=== PATIENT | female | born 1955 | race Caucasian/White ===

== ENCOUNTER 2020-12-15 09:38 | Outpatient (CLI) | payer OTHER, SELFPAY ==
--- NOTE | 2020-12-15 09:42 | MM_ITS ---
WS: [id number] Bilateral screening digital mammogram, 12/15/2020 Clinical Data: SCREENING Comparison: 05/03/2018, 08/20/2014, 09/18/2008. Findings: The breast parenchymal pattern shows fibroglandular tissue. No spiculated masses or clustered calcifi cations are seen. There are no secondary signs of carcinoma. Mole markers are on both breasts. MM/[place] [id number] Impression: 1. Negative bilateral mammogram unchanged. 2. Recommend annual screening mammograms. BIRADS: 1-Negative FOLLOW UP: 1 Year Follow-up The CAD tool or die drawing checker was used.
== END 2020-12-15 09:39 | disposition home or self-care (01) ==
LOC: RADSHAW 09:41
PROVIDERS: PCP Family Medicine; Visit Provider Family Medicine
DX: Z12.31 Encounter for screening mammogram for malignant neoplasm of breast (principal)
CPT/HCPCS: 77067

== ENCOUNTER 2021-05-10 09:41 | Outpatient (CLI) | payer MEDICARE, SELFPAY ==
--- NOTE | 2021-05-10 09:54 | XR_ITS ---
WS: [id number] SCREENING DEXA SCAN [employer] CLINICAL INFORMATION: POSTMENOPAUSAL COMPARISON: None. FINDINGS: The L1-L4 bone mineral density measures 1.254 g/cm2. This corresponds to a T score score of 0.6 and Z score of 1.8. Left femoral neck bone mineral density measures 0.971 g/cm2. This corresponds to a T score of -0.3 an d Z score of 0.6. Right femoral neck bone mineral density measures 0.911 g/cm2. This corresponds to a T score -0.8of an d Z score of 0.1. Mean femoral neck bone mineral density measures 0.941 g/cm2. This corresponds to a T score of -0.5 an d Z score of 0.4. XR/XR DEXA axial skeleton* [id number] IMPRESSION: Normal bone mineralization. Patient's FRAX calculated 10 year probability for major osteoporotic fracture i s 8.0 % and osteoporotic hip fracture is 0.7%.
== END 2021-05-10 09:42 | disposition home or self-care (01) ==
PROVIDERS: PCP Family Medicine; Visit Provider Family Medicine
DX: Z78.0 Asymptomatic menopausal state (principal)
CPT/HCPCS: 77080

== ENCOUNTER 2023-05-01 10:48 | Outpatient (CLI) | payer MEDICARE, SELFPAY ==
--- NOTE | 2023-05-01 10:54 | MM_ITS ---
WS: [id number] BILATERAL 3D TOMOSYNTHESIS DIGITAL SCREENING MAMMOGRAPHY WITH CAD CLINICAL INFORMATION: SCREENING HISTORY: Screening mammogram. No current complaints. COMPARISON: 2020 TECHNIQUE: Bilateral CC and MLO views. FINDINGS: Scattered fibroglandular densities bilaterally. No suspicious focal mass, asymmetry, calcifications, or architectural distortion. No evidence of malignancy. Vascular calcification. IMPRESSION: MM/[place] [id number] BI-RADS: 2-Benign FOLLOW UP: 1 Year Follow-up Recommend return to annual screening mammography.
== END 2023-05-01 10:49 | disposition home or self-care (01) ==
PROVIDERS: PCP Family Medicine; Visit Provider Family Medicine
DX: Z12.31 Encounter for screening mammogram for malignant neoplasm of breast (principal)
CPT/HCPCS: 77063; 77067

== ENCOUNTER 2024-01-02 16:51 | Emergency (ER) | payer MEDICARE, SELFPAY ==
[2024-01-02 16:57] VITALS: BP 157/76; PULSE 75; RESP 18; TEMP 36.6; O2SAT 100; BMI 31.2
--- NOTE | 2024-01-02 17:01 | XRR_ITS ---
PROCEDURE INFORMATION: Exam: XR Left Ankle Exam date and time: 01/02/2024 5:09 PM Age: 68 years old Clinical indication: Injury or trauma; Other: Not specified; Blunt trauma; Ankle; Left TECHNIQUE: Imaging protocol: Radiologic exam of the left ankle. Views: 3 or more views. COMPARISON: No relevant prior studies available. FINDINGS: Bones/joints: Acute displaced fractures of the lateral and medial malleoli. Suspected posterior malleolar fracture as well, evaluation of which with CT may be helpful if clinically warranted. Talus, subtalar articulations and calcaneus are grossly intact. Soft tissues: Prominent soft tissue edema. XR/XR ankle LT min 3V* [id number] IMPRESSION: 1. Acute displaced fractures of the lateral and medial malleoli. 2. Suspected posterior malleolar fracture as well, evaluation of which with CT may be helpful if clinically warranted.
--- NOTE | 2024-01-02 17:09 | ED_ITS ---
HPI - Extremity Problem General: Chief complaint: Extremity Injury, Lower Stated complaint: left ankle pain Time Seen by Provider: 01/02/24 17:09 History of Present Illness: 68-year-old female comes in today with l eft ankle pain. On exam patient appears nontoxic. Patient appears in mild pain. Patient states that this afternoon she was stepping off the porch step when she twisted her ankle. states that the ankle seemed out of place when he first saw her and when he picked up her ankle it seemed to slide back into place . Alignment of the ankle at this time is normal. Patient does have swelling distally and laterally. Pulses are intact. Sensation is normal. Review of Systems General: Reports: 10 or more systems reviewed and unremarkable except in HPI and below Musc: Reports: extremity pain and extremity swelling Physical Exam Const: COMMON NORMALS: alert HENMT: COMMON NORMALS: normocephalic HEAD & SCALP: normocephalic Neck/C-Spine: COMMON NORMALS: full ROM Resp: COMMON NORMALS: normal respiratory effort Cardio: COMMON NORMALS: regular rate RATE: regular rate Back/Pelvis: COMMON NORMALS: thoracic and lumbar spine normal to inspection Neuro: SENSORIUM/ORIENTATION: Yes alert Skin: COMMON NORMALS: turgor normal GENERAL SKIN EXAM: turgor normal Course Vital Signs: Vital signs: Vital Signs Temperature 97.9 F 01/02/24 16:57 Pulse Rate 75 01/02/24 16:57 Respiratory Rate 18 01/02/24 16:57 Blood Pressure 157/76 01/02/24 16:57 Pulse Oximetry 100 01/02/24 16:57 Oxygen Delivery Me thod Room Air 01/02/24 16:57 MDM - Extremity (Nontraumatic) Medical Decision Making 68-year-old female comes in today for complaints of injury to the left ankle. On exam patient has swelling to lateral and medial aspects of the ankle. Pulses are intact. Cap refill is intact. Differential diagnosis includes not limited to fracture, sprain, contusion. X-ray noted a bimalleolar fracture of the left ankle. Patient was put in a posterior short leg with stirrup splint. Discussed patient with Dr. Rivas, foot and ankle surgeon, he agreed to see patient in his office tomorrow for follow-up treatment and evaluation. Patient and family both reported understanding of care plan need for follow-up or return to the ER. All radiology interpretation(s) finalized by discharge Discharge Plan Discharge Patient Disposition: Home Clinical Impression: Bimalleolar fracture of left ankle Qualifiers: Encounter type: initial encounter Fracture type: closed Qualified Code(s): S82.842A - Displaced bimalleolar fracture of left lower leg, initial encounter for closed fracture Condition: Stable Discharge Orders: Discharge ED (Routine); Ordered 01/02/24 Ordered By: Yao Delgado Referrals: Alondra Vasquez MD [Primary Care Provider] - Leonardo Rivas DPM [Physician] - Discharge Diet: Usual diet Discharge Activity: Increase activity as tolerated Patient Instructions: Ankle Fracture (ED) Activity Restrictions/Additional Instructions: You will need to follow-up with Dr. Rivas's office tomorrow. Expect to hear from the office in the morning with your appointment time. Elevate foot is much as possible to prevent swelling. Coding Level of Care Code ED [employer] for Bianca Erickson
--- NOTE | 2024-01-03 07:12 | DCPLANNER ---
message sent to podiatry for er f/u
== END 2024-01-02 18:10 | disposition home or self-care (01) ==
PROVIDERS: Emergency Provider Nurse Practitioner Family; PCP Family Medicine
DX: S82.842A Displaced bimalleolar fracture of left lower leg, initial encounter for closed fracture (principal); X50.1XXA Overexertion from prolonged static or awkward postures, initial encounter
CPT/HCPCS: 29515; 73610; 99283; E0114

== ENCOUNTER → 2024-01-03 08:59 | Outpatient (BNVA) | payer MEDICARE, SELFPAY | PROVIDERS: PCP Family Medicine; Visit Provider Podiatrist Foot & Ankle Surgery | DX: S82.842A Displaced bimalleolar fracture of left lower leg, initial encounter for closed fracture (principal); E11.42 Type 2 diabetes mellitus with diabetic polyneuropathy; X50.1XXA Overexertion from prolonged static or awkward postures, initial encounter | CPT/HCPCS: 99204 ==

== ENCOUNTER 2024-01-11 09:22 | Day surgery (SDC) | payer MEDICARE, SELFPAY ==
[2024-01-11] VITALS (10 sets, daily range): BP systolic 132–151; BP diastolic 65–87; PULSE 73–89; RESP 10–21; TEMP 36.6–36.9; O2SAT 93–99; BMI 31.2
--- NOTE | 2024-01-11 09:44 | PM.OP ---
Operative Report Date of procedure: January 11, 2024 Pre-op diagnosis: Bimalleolar fracture of left ankle S82.842A Post-op diagnosis: Bimalleolar fracture of left ankle S82.842A Procedure done: Open reduction internal fixation right bimalleolar fracture. CPT code 01533 Implants: [employer] anatomic fibular plate with 3.5 mm locking screws. [place] 4 mm headed screws medially 2-0 Vicryl, 3-0 Vicryl, skin teresita. Specimens removed/disposition: None Pathology: none Surgeon: Leonardo Rivas DPM Estimated blood loss: 5 See intraoperative documentation IV fluids: see intraoperative documentation Urine output: 0 Complications: None Brief History: left bimalleolar fracture to left ankle. DOI 01/02/24. She reports she was stepping off the porch step when she twisted her left ankle. Patient went to ED where x-rays were obtained. She is NWB with posterior splint to left and utilizing a wheel-chair at today visit. Patient is diabetic. She states that her last a1c 7.6%. I reviewed at length with the patient, the risks, potential complications, benefits, alternatives, expectations, and typical outcomes associated with the surgery. The risks and potential complications were explained in detail, including but not limited to infection, wound dehiscence or soft tissue complications, bleeding and hematoma, chronic edema, neuritis or nerve damage producing numbness or chronic pain, CRPS, failure to relieve pain or worsening pain, thick / painful / unsightly scar, limited motion / stiffness, malposition, delayed union, malunion, or nonunion, fracture, reaction to implants, anesthetic complications, venous thromboembolism, and deformity recurrence. I discussed the notion of no regrets with the patient as it pertains to complications and outcomes. The patient seemed to understand the nature of the proposed care and required convalescence. They asked appropriate questions, answered to their satisfaction. They are aware no guarantees can be made as to a satisfactory outcome and they understand there may be other possible unforeseen complications or outcomes not listed here that will be treated accordingly if they arise. There were no written or implied guarantees given to the patient. They gave informed consent to proceed. Procedure: Under mild sedation patient was brought to the operating room and positioned on the operating table in supine position. Timeout was performed. Anesthesia was then administered by the anesthesia service. Local anesthesia was injected by tinaelf consisting of 10 cc of 0.5 sent Marcaine plain for medial ankle nerve block, of note popliteal block to the left lower extremity was performed preoperatively per anesthesia. Pneumatic tourniquet was applied to the left high calf. The left lower extremity was scrubbed, prepped and draped utilizing normal aseptic technique. Left foot and ankle were exanguinated with an Esmarch bandage and tourniquet inflated to 250 mmHg. Attention was directed to the left lateral ankle where bony landmark of lateral malleolus was palpated, directly over the lateral malleolus and distal fibula a linear longitudinal incision was made through skin with a #15 blade with dissection carried down through subcutaneous tissue to the layer of periosteum using sharp and blunt technique. Care was taken to retract and preserve neurovascular and tendinous structures. All bleeders were ligated and cauterized as necessary. Periosteal incision was made and a Davie Garcia C fibular fracture was identified, this was distracted, curettaged of hematoma followed by saline flush and reduced and temporarily stabilized with [id number] fracture reduction forceps. Following standard AO technique a anatomic fibular plate provided by [employer] with 3.5 mm locking screws were utilized to fixate the fracture and stabilize the distal fibula not violating the ankle mortise this was confirmed with AP, oblique and lateral views with excellent fixation and and hardware placement and fracture reduction with anatomic alignment of the fibula in all 3 planes. Percutaneous fixation of the medial mall with 4.0 millimeter screw x 2 in parallel fashion not violating the ankle mortise once again in the AP, oblique and lateral view confirmed that the medial gutter was not violated with hardware in the medial malleolus was reduced. Cotton hook test did not reveal any medial gutter widening or diastases of the tib-fib clear space. The incisions were irrigated with saline solution. Medial incision closed with teresita, lateral incision closed in a layered fashion with periosteum reapproximated with 2-0 Vicryl, subcutaneous tissue with 3-0 Vicryl and skin with skin teresita. Incisions were dressed with Adaptic, sterile 4 x 4's, Kerlix followed by application of a well-padded short leg cast with ankle joint in neutral position. Tourniquet was deflated and a prompt hyperemic response is noted to the distal digits of the left foot. Patient tolerated the procedure and anesthesia well and was transferred to the PACU with vital signs stable and vascular status intact. Following a period of postoperative monitoring patient will be transferred back to the floor. She is to be nonweightbearing to the left lower extremity and elevate left foot while resting.
--- NOTE | 2024-01-11 10:09 | P.ANESASSM_ITS ---
Pre-Anesthetic Assessment Height/Weight: Height 1.52 m Weight 72.575 kg Temp Pulse Resp BP Pulse Ox O2 Del Method 98.5 F 89 18 151/84 99 Room Air 01/11/24 09:47 01/11/24 09:47 01/11/24 09:47 01/11/24 09:47 01/11/24 09:47 01/11/24 09:47 Preop Diagnosis: Left bimalleolar fracture Operation Date: 01/11/24 11:05 Proposed Procedures p ORIF Ankle ORIF Bimalleolar Fracture(Right) - Leonardo Rivas DPM Familial anesthetic complications: None Was Beta Yesenia taken within 24 hours: N/A Was Clonidine taken within 24 hours: N/A Last intake: Intake Last Liquid Date 01/10/24 Last Liquid Time 22:30 Last Solid Date 01/10/24 Last Solid Time 22:30 Social No alcohol and No tobacco Exam alert, oriented x 3, clear to auscultation bilaterally and regular rate & rhythm Airway Mallampati: Class I Dentition: full CV/HEM Hypertension Metabolic Diabetes Mellitus, Hyperlipidemia and Thyroid Disease Anesthetic Plan ASA status: 3 Anesthesia: General and Regional (specify below) Risk of > 500 ml blood loss (7ml/kg in children): No Medications/Allergies Home Medications Medication Instructions Recorded Confirmed Last Taken Type atorvastatin 40 mg tablet 40 mg PO DAILY 01/03/24 01/11/24 01/10/24 History hydrochlorothiazide 25 mg tablet 25 mg PO DAILY 01/03/24 01/11/24 01/10/24 History levothyroxine 75 mcg tablet 75 mcg PO DAILY 01/03/24 01/11/24 01/11/24 History 0730 losartan 100 mg tablet 100 mg PO DAILY 01/03/24 01/11/24 01/10/24 History subcutaneous insulin pump (t:slim 01/03/24 01/11/24 Unknown History X2 Basal-IQ Insulin Pump) aspirin 81 mg tablet 81 mg PO DAILY 01/10/24 01/11/24 1 Week Ago History ~01/04/24 ibuprofen 400 mg tablet 400 mg PO Q6H 01/10/24 01/11/24 01/10/24 History hydrocodone 10 mg-acetaminophen 1 tab PO Q6H PRN pain 7 days #28 01/11/24 Unknown Rx 325 mg tablet tabs Allergies Allergy/AdvReac Type Severity Reaction Status Date / Time No Known Allergies Allergy Verified 01/03/24 09:11 [facility] Anesthesia Social History Smoking and tobacco/nicotine status: never used tobacco/nicotine Data Anesthesia Cardiac Studies: No Data to Display
[2024-01-11] MEDS: sodium chloride 0.9% 1,000 ML 30 ML IV (10:38)
[2024-01-11] MEDS: CELEcoxib 200 mg Capsule 400 MG PO (10:43)
[2024-01-11] MEDS: gabapentin 300 mg Capsule PO (10:43)
[2024-01-11 10:46] LABS: Glucose Point of Care 266 mg/dL (70-110)
--- NOTE | 2024-01-11 11:04 | W.PM.OPSUD ---
Surgery/Procedure H&P Update DATE OF PROCEDURE: January 11, 2024 DATE H&P PERFORMED: 01/03/24 H&P UPDATE INFORMATION: I have reviewed H&P completed within last 30 days, I have examined patient prior to procedure, No changes to prior documentation and [place] [facility] [place] indicated PREOP DIAGNOSIS: Left bimalleolar fracture PLANNED PROCEDURE: Operation Date: 01/11/24 11:05 Proposed Procedures p ORIF Ankle ORIF Bimalleolar Fracture(Right) - Leonardo Rivas DPM
[2024-01-11] MEDS: ceFAZolin 2,000 MG in sodium chloride 0.9% (plus) 50 ML 100 MG IV (11:29)
[2024-01-11] MEDS: BUPivacaine 0.5% INJ 10 mL INJECTION (11:56)
--- NOTE | 2024-01-11 13:18 | ANES.PROC ---
Anesthesia Procedures Procedure/Date: 01/11/24 Nerve Block ^: Nerve Block 1: Main Anesthesia: general anesthesia Time Out Performed: Yes Consent: requested by attending/covering physician, from patient, from other, risks and benefits reviewed and patient agrees to proceed Nerve block location: popliteal (R) Anesthesia monitors applied: pulse oximetry, EKG, BP cuff and oxygen Nerve block position: supine Anesthetic Used: ropivicaine 0.5% (30 ml) and with decadron (4 mg) Ultrasound used to: recognize landmarks Nerve Stimulator Used?: No Interscalene/Femoral BLK: 4 stimuplex 21 g needle used for position and inplane approach, visualize local anesthetic spread and no vascular puncture identified Injection: neg aspiration of heme Complications: none
--- NOTE | 2024-01-11 14:20 | XR_ITS ---
WS: [id number] XR ankle LT 2V [id number] REASON FOR EXAM: AMANDA PICS FINDINGS: Plate and screw fixation of distal left fibular interest syndesmotic fracture. Long oblique screw fixation of medial malleolar fracture. Surgical appliances are intact and in proper position and alignment. Good alignment of the fracture fragments. XR/XR ankle LT 2V [id number] IMPRESSION: Left ankle fracture with internal fixation without abnormality.
--- NOTE | 2024-01-19 10:04 | P.BOP_ITS ---
Date of Procedure: 10/26/23 Surgeon: Leonardo Rivas DPM [employer] Instructor(s): [employer] Procedure(s) performed: Open reduction internal fixation right trimalleolar fracture. Findings of the procedure(s): Right trimalleolar fracture. Estimated blood loss: 5 mL Specimen(s) removed: No specimens removed. Post-operative diagnosis: Right trimalleolar fracture. No complications with anesthesia or surgery. Patient underwent open reduction internal fixation of right trimalleolar fracture with general LMA, popliteal block per anesthesia performed preoperatively of the right lower extremity.
== END 2024-01-11 13:56 | disposition home or self-care (01) ==
PROVIDERS: PCP Family Medicine; Visit Provider Podiatrist Foot & Ankle Surgery
PROC: (CPT 27814; principal; 2024-01-11 10:55)
DX: S82.842A Displaced bimalleolar fracture of left lower leg, initial encounter for closed fracture (principal); X58.XXXA Exposure to other specified factors, initial encounter; E11.42 Type 2 diabetes mellitus with diabetic polyneuropathy; I10 Essential (primary) hypertension; E78.5 Hyperlipidemia, unspecified; E03.9 Hypothyroidism, unspecified
CPT/HCPCS: 27814; 36416; 73600; 76000; 82962; C1713; J0690; J1100; J2250; J2405; J2704; J2795; J3010; J3490; J7030

== ENCOUNTER → 2024-01-29 14:49 | Outpatient (BNVA) | payer MEDICARE, SELFPAY | PROVIDERS: PCP Family Medicine; Visit Provider Podiatrist Foot & Ankle Surgery | DX: Z98.890 Other specified postprocedural states; S82.842D Displaced bimalleolar fracture of left lower leg, subsequent encounter for closed fracture with routine healing; X58.XXXD Exposure to other specified factors, subsequent encounter | CPT/HCPCS: 73610; 99024 ==

== ENCOUNTER → 2024-02-21 13:18 | Outpatient (BNVA) | payer MEDICARE, SELFPAY | PROVIDERS: PCP Family Medicine; Visit Provider Podiatrist Foot & Ankle Surgery | DX: Z98.890 Other specified postprocedural states (principal); S82.842D Displaced bimalleolar fracture of left lower leg, subsequent encounter for closed fracture with routine healing; X58.XXXD Exposure to other specified factors, subsequent encounter | CPT/HCPCS: 73610; 99024 ==

== ENCOUNTER → 2024-03-06 12:54 | Outpatient (BNVA) | payer MEDICARE, SELFPAY | PROVIDERS: PCP Family Medicine; Visit Provider Podiatrist Foot & Ankle Surgery | DX: Z98.890 Other specified postprocedural states (principal); Z87.81 Personal history of (healed) traumatic fracture; Z47.89 Encounter for other orthopedic aftercare | CPT/HCPCS: 73610 ==

== ENCOUNTER 2024-03-06 14:44 | Outpatient (CLI) | payer MEDICARE, SELFPAY | END 2024-03-06 14:45 | disposition home or self-care (01) | LOC: SPT 14:45 | PROVIDERS: PCP Family Medicine; Visit Provider Podiatrist Foot & Ankle Surgery | DX: Z47.89 Encounter for other orthopedic aftercare (principal); Z98.890 Other specified postprocedural states | CPT/HCPCS: 97760; L1902 ==

== ENCOUNTER → 2024-03-20 13:40 | Outpatient (BNVA) | payer MEDICARE, SELFPAY | PROVIDERS: PCP Family Medicine; Visit Provider Podiatrist Foot & Ankle Surgery | DX: Z98.890 Other specified postprocedural states (principal); S82.842D Displaced bimalleolar fracture of left lower leg, subsequent encounter for closed fracture with routine healing; X58.XXXD Exposure to other specified factors, subsequent encounter | CPT/HCPCS: 73610; 99024 ==

== ENCOUNTER 2024-05-08 08:50 | Outpatient (CLI) | payer MEDICARE, SELFPAY ==
--- NOTE | 2024-05-08 08:52 | MM_ITS ---
WS: [id number] BILATERAL SCREENING DIGITAL TOMOSYNTHESIS MAMMOGRAM WITH CAD HISTORY: SCREENING COMPARISON: 05/01/2023, 12/15/2020 Bilateral CC and MLO views with tomosynthesis and synthetic mammography submitted. Computer aided det ection analyzed. Breast composition: The breasts are heterogeneously dense, which may obscure small masses. No suspici ous masses, microcalcifications or architectural distortion. MM/MM scr BI tomosynthesis [id number] IMPRESSION: BI-RADS: 2 - Benign FOLLOW UP: 1 Year Follow-up
== END 2024-05-08 08:51 | disposition home or self-care (01) ==
LOC: RAD 08:51
PROVIDERS: PCP Family Medicine; Visit Provider Family Medicine
DX: Z12.31 Encounter for screening mammogram for malignant neoplasm of breast (principal); R92.333 Mammographic heterogeneous density, bilateral breasts
CPT/HCPCS: 77063; 77067

== ENCOUNTER 2025-05-27 09:01 | Outpatient (CLI) | payer MEDICARE, SELFPAY ==
--- NOTE | 2025-05-27 09:08 | MM_ITS ---
WS: [id number] BILATERAL SCREENING DIGITAL TOMOSYNTHESIS MAMMOGRAM WITH CAD HISTORY: SCREENING COMPARISON: 05/08/2024, 05/01/2023 and 12/15/2020 Bilateral CC and MLO views with tomosynthesis and synthetic mammography submitted. Computer aided detection analyzed. Breast composition: The breasts are heterogeneously dense, which may obscure small masses. No suspicious masses, microcalcifications or architectural distortion. Benign calcification in the posterior RIGHT breast. No suspicious grouping of calcifications. Fibroglandular tissue is stable. MM/MM scr tomosynthesis [id number] IMPRESSION: BI-RADS: 2 - Benign FOLLOW UP: 1 Year Follow-up
== END 2025-05-27 09:02 | disposition home or self-care (01) ==
LOC: RAD 09:03
PROVIDERS: PCP Family Medicine; Visit Provider Family Medicine
DX: Z12.31 Encounter for screening mammogram for malignant neoplasm of breast (principal); R92.333 Mammographic heterogeneous density, bilateral breasts; R92.1 Mammographic calcification found on diagnostic imaging of breast; R92.323 Mammographic fibroglandular density, bilateral breasts
CPT/HCPCS: 77063; 77067